=== PATIENT | female | born 1995 | race Caucasian/White ===

== ENCOUNTER 2017-08-08 15:19 | Inpatient (IN) | payer OTHER ==
[~2017-08-08] VITALS: Ht 167.6 cm; Wt 104.1 kg
[~2017-08-08 15:19] MED LIST: ENDOCET 5-3251 EACH PO; FLEXERIL10 MG PO; MOTRIN800 MG PO; NAPROSYN500 MG PO; PRENATAL1 EACH PO; TRAMADOL HCL50 MG PO; VICODIN 5-3001 EACH PO
[2017-08-08 16:31] LABS: HEMATOCRIT 39.4 % (36.0-46.0); MCH 30.6 PG (29.0-34.0); MCHC 33.5 G/DL (30.0-36.0); MCV 91.4 FL (83-99); MEAN PLAT.VOLUME 9.8 uM^3 (9.5-12.4); PLATELET COUNT 196 K/uL (156-360); RBC DIS.WIDTH-CV 14.5 % (11.8-14.6); RBC DIS.WIDTH-SD 49.4 % (39-53); RED BLOOD COUNT 4.31 M/uL (3.80-5.20); WHITE BLOOD COUNT 16.3 K/uL (4.1-10.2)
[2017-08-08 16:41] LABS: CHLORIDE 103 mEq/L (99-109); POTASSIUM 3.2 mEq/L (3.7-5.4); SODIUM 139 mEq/L (136-147)
[2017-08-08 16:44] LABS: GLUCOSE 106 mg/dL (70-99)
[2017-08-08 16:45] LABS: ANION GAP 14 MEQ/L (2-14)
[2017-08-08 16:46] LABS: TOTAL BILIRUBIN 0.4 mg/dL (0.0-1.0)
[2017-08-08 16:47] LABS: ALKALINE PHOSPHATASE 93 IU/L (3-129); GFR ESTIMATE (CALCULATED) > 59 mL/min/
[2017-08-08 16:48] LABS: UREA NITROGEN (BUN) 4 mg/dL (9-23)
[2017-08-08 16:50] LABS: ADD MIUA? YES; BILIRUBIN NEGATIVE; BLOOD SMALL; COLOR YELLOW ((YELLOW)); GLUCOSE (STRIP) NEGATIVE; KETONES 20; LEUKOCYTES MODERATE; NITRITE NEGATIVE; PROTEIN (STRIP) 30; SPECIFIC GRAVITY 1.014 (1.000-1.030); UROBILINOGEN 0.2 MG/DL (0.2-1.0)
[2017-08-08 16:54] LABS: BACTERIA RARE /HPF; EPITHELIAL CELLS 2+ /HPF; MUCUS TRACE /LPF; UCUL ADDED? YES; WHITE BLOOD CELLS 30-40 /HPF (0-5)
[2017-08-08 16:56] LABS: QUANTITATIVE HCG < 4.0 MIU/ML
[2017-08-08 16:59] LABS: EOSINOPHIL (%) 0.1 % (0-5); IMMATURE GRANULOCYTE (%) 0.5 % (0.0-0.7); IMMATURE GRANULOCYTE COUNT 0.1 K/uL; LYMPHOCYTE COUNT 1.1 K/uL (1.0-2.8); MONOCYTE (%) 10.3 % (3-12); MONOCYTE COUNT 1.6 K/uL (0-0.8); NEUTROPHIL (%) 82.1 % (45-76)
[2017-08-08] MEDS ORDERED: VYVANSE60 MG PO (19:36)
[2017-08-08] MEDS ORDERED: FLUOXETINE HCL60 MG PO (19:36)
[2017-08-08] MEDS ORDERED: ATARAX,VISTARIL25 MG PO (19:37)
[2017-08-08] MEDS ORDERED: TYLENOL EXTRA500 MG PO (19:37)
[2017-08-09] VITALS (7 sets, daily range): BP systolic 102–136; BP diastolic 57–91
[2017-08-09 01:56] LABS: METH RESISTANT S AUREUS PCR NEGATIVE (NEGATIVE)
[2017-08-09 01:57] LABS: PROBE CHECK PASS; SPECIMEN PROCESSING CONTROL PASS
[2017-08-09 07:00] LABS: HEMATOCRIT 39.4 % (36.0-46.0); MCH 30.6 PG (29.0-34.0); MCHC 32.7 G/DL (30.0-36.0); MCV 93.6 FL (83-99); MEAN PLAT.VOLUME 10.4 uM^3 (9.5-12.4); PLATELET COUNT 180 K/uL (156-360); RBC DIS.WIDTH-CV 14.8 % (11.8-14.6); RBC DIS.WIDTH-SD 50.9 % (39-53); RED BLOOD COUNT 4.21 M/uL (3.80-5.20); WHITE BLOOD COUNT 19.3 K/uL (4.1-10.2)
[2017-08-09 07:28] LABS: ANION GAP 10 MEQ/L (2-14); CHLORIDE 104 MEQ/L (99-109); GFR ESTIMATE (CALCULATED) > 59 mL/min/; GLUCOSE 101 mg/dL (70-99); POTASSIUM 3.1 MEQ/L (3.7-5.4); SAMPLE HEMOLYSIS CHECK 0; SAMPLE ICTERIC CHECK 0; SAMPLE LIPEMIA CHECK 0; SODIUM 139 MEQ/L (136-147); UREA NITROGEN (BUN) 5 mg/dL (9-23)
[2017-08-10 06:35] LABS: EOSINOPHIL (%) 0.4 % (0-5); EOSINOPHIL COUNT 0.1 K/uL (0-0.3); HEMATOCRIT 33.9 % (36.0-46.0); IMMATURE GRANULOCYTE (%) 0.6 % (0.0-0.7); IMMATURE GRANULOCYTE COUNT 0.1 K/uL; INSTRUMENT ABS NEUTROPHIL CT 9.8 K/uL; LYMPHOCYTE COUNT 1.4 K/uL (1.0-2.8); MCH 31.6 PG (29.0-34.0); MCHC 33.9 G/DL (30.0-36.0); MCV 93.1 FL (83-99); MEAN PLAT.VOLUME 10.9 uM^3 (9.5-12.4); MONOCYTE (%) 13.4 % (3-12); MONOCYTE COUNT 1.8 K/uL (0-0.8); NEUTROPHIL (%) 74.4 % (45-76); NEUTROPHIL COUNT 9.8 K/uL (1.8-6.4); PLATELET COUNT 179 K/uL (156-360); RBC DIS.WIDTH-SD 51.7 % (39-53); RED BLOOD COUNT 3.64 M/uL (3.80-5.20); WHITE BLOOD COUNT 13.2 K/uL (4.1-10.2)
[2017-08-10 07:01] LABS: ANION GAP 10 MEQ/L (2-14); CHLORIDE 106 MEQ/L (99-109); GFR ESTIMATE (CALCULATED) > 59 mL/min/; GLUCOSE 99 mg/dL (70-99); POTASSIUM 3.1 MEQ/L (3.7-5.4); SAMPLE HEMOLYSIS CHECK 0; SAMPLE ICTERIC CHECK 0; SAMPLE LIPEMIA CHECK 0; SODIUM 141 MEQ/L (136-147); UREA NITROGEN (BUN) 6 mg/dL (9-23)
[2017-08-10 07:37] VITALS: BP 133/81
[2017-08-10 15:51] VITALS: BP 128/85
[2017-08-10 23:15] VITALS: BP 115/59
[2017-08-11 07:32] VITALS: BP 126/76
[2017-08-11] MEDS ORDERED: TYLENOL EXTRA500 MG PO (11:40)
[2017-08-11] MEDS ORDERED: KEFLEX500 MG PO (11:42)
== END 2017-08-11 12:11 | disposition home or self-care (01) | DRG 690 ==
LOC: EME 15:19 → 2EAST 21:22 → EDOF 21:22 → ENRESERV 21:25 → 2EAST 23:58
PROVIDERS: Hospitalist; Nurse Practitioner Family; Student in an Organized Health Care Education/Training Program
DX: N12 Tubulo-interstitial nephritis, not specified as acute or chronic (principal); M54.5 Low back pain; K59.00 Constipation, unspecified; R11.2 Nausea with vomiting, unspecified; E87.6 Hypokalemia; B96.20 Unspecified Escherichia coli [E. coli] as the cause of diseases classified elsewhere; E66.9 Obesity, unspecified; Z68.37 Body mass index [BMI] 37.0-37.9, adult; Z79.899 Other long term (current) drug therapy; R50.9 Fever, unspecified
CPT/HCPCS: 74176; 80048; 80053; 81003; 83605; 84702; 85025; 85027; 87040; 87077; 87086; 87186; 87491; 87591; 87641; 87801; 90686; 99281; 99285; J0696; J1650; J1885; J2405; J7030; J7050